=== PATIENT | female | born 1945 | race Caucasian/White ===

== ENCOUNTER 2019-12-28 07:23 | Outpatient (CLI) | payer OTHER, SELFPAY ==
[2019-12-28 08:32] LABS: Basophils Absolute Auto 0.1 K/mm3 (0.0-0.1); Basophils Percent Auto 1.3 % (0.2-1.2); Eosinophils Absolute Auto 0.2 K/mm3 (0-0.3); Eosinophils Percent Auto 2.6 % (0-4.4); Hematocrit 39.3 % (37.0-47.0); Hemoglobin 13.4 g/dL (12.0-15.0); Immature Granulocyte Absolute 0.01 K/mm3 (0.00-0.031); Immature Granulocyte Percent A 0.2 % (0-0.5); Lymphocytes Absolute Auto 2.79 K/mm3 (0.9-3.2); Mean Corpuscular HGB Conc 34.1 g/dl (32-36); Mean Corpuscular Hemoglobin 31.6 pg (26-34); Mean Corpuscular Volume 92.7 fl (80-100); Mean Platelet Volume 9.8 fl (7.4-10.4); Monocytes Absolute Auto 0.7 K/mm3 (0.1-0.6); Monocytes Percent Auto 11.3 % (2.6-8.5); Neutrophils Absolute Auto 2.5 K/mm3 (1.3-6.7); Neutrophils Percent Auto 39.6 % (45.5-73.1); Platelet Count Result 326 k/mm3 (150-375); Red Blood Count 4.24 M/mm3 (4.2-5.4); Red Cell Distribution Width 12.2 % (11.5-14.5); White Blood Count 6.2 K/mm3 (4.5-10.0)
[2019-12-28 08:49] LABS: Potassium 3.7 mmol/L (3.4-5.0)
[2019-12-28 08:51] LABS: Anion Gap 10 mmol/L (8-16); Blood Urea Nitrogen 22 mg/dL (7-17); Calcium 9.7 mg/dL (8.4-10.2); Carbon Dioxide 28 mmol/L (22-30); Chloride 93 mmol/L (98-107); Estimated Glomerular Filt Rate 54; Glucose 104 mg/dL (65-105); Sodium 131 mmol/L (137-145)
== END 2019-12-28 07:24 | disposition home or self-care (01) ==
LOC: ANHLAB 07:25
PROVIDERS: PCP Family Medicine; Visit Provider Physician Assistant
DX: I10 Essential (primary) hypertension (principal)
CPT/HCPCS: 36415; 80048; 85025

== ENCOUNTER → 2019-12-28 09:59 | Outpatient (CLI) | payer OTHER, SELFPAY ==
--- NOTE | ~2019-12-28 | CT_ITS ---
EXAMINATION: CT chest wo con DATE: 12/28/2019 10:21 INDICATION: Dyspnea on exertion, pulmonary fibrosis TECHNIQUE: Computed tomography (CT) of the chest was performed without intravenous contrast. The dose -length product (DLP) was 485.44 mGy-cm. Automated exposure control and iterative reconstruction tech [employer] were employed. COMPARISON: 10/04/2012 FINDINGS: Calcified pulmonary nodules are consistent with old granulomatous disease. An unchanged 5 m m nodule of the left lower lobe also likely reflects old granulomatous disease. The lungs are free of acute opacities. There is no pleural effusion or pneumothorax. No pathologically enlarged thoracic l ymph nodes are identified. The heart size is normal. No pulmonary fibrosis is identified. There is mo derate thoracic spondylosis. IMPRESSION: 1. No CT correlate for the patient's symptoms or evidence of pulmonary fibrosis. Reviewed, dictated and finalized at location A. IMPRESSION: 1. No CT correlate for the patient's symptoms or evidence of pulmonary fibrosis .
== END ==
PROVIDERS: PCP Family Medicine; Visit Provider Physician Assistant
DX: J84.10 Pulmonary fibrosis, unspecified (principal); R06.02 Shortness of breath
CPT/HCPCS: 71250

== ENCOUNTER → 2020-01-14 13:57 | Outpatient (CLI) | payer OTHER, SELFPAY ==
--- NOTE | ~2020-01-14 | MM_ITS ---
EXAMINATION: MM screening rubi BI w maxwell HISTORY: Screening mammogram TECHNIQUE: Craniocaudal and mediolateral oblique 3-D tomosynthesis images were obtained and synthetic 2-D images were generated. CAD analysis was submitted and interpreted. COMPARISON: 10/19/2018, 10/03/2017, 01/16/2016 bilateral digital screening mammogram examinations BREAST PARENCHYMAL COMPOSITION: There are scattered areas of fibroglandular density. FINDINGS: There is no evidence of suspicious mass, calcification, or architectural distortion to sugg est malignancy in either breast. There has been no suspicious interval change. IMPRESSION: 1. No mammographic evidence of malignancy. 2. Recommend routine screening mammography in one year. BI-RADS Category 1: Negative Reviewed, dictated and finalized at location A.
== END ==
PROVIDERS: PCP Family Medicine; Visit Provider Family Medicine
DX: Z12.31 Encounter for screening mammogram for malignant neoplasm of breast (principal)
CPT/HCPCS: 77063; 77067

== ENCOUNTER 2020-01-19 06:49 | Outpatient (CLI) | payer OTHER, SELFPAY ==
[2020-01-19 07:36] LABS: Anion Gap 7 mmol/L (8-16); Blood Urea Nitrogen 22 mg/dL (7-17); Carbon Dioxide 30 mmol/L (22-30); Chloride 99 mmol/L (98-107); Estimated Glomerular Filt Rate 54; Glucose 108 mg/dL (65-105); Potassium 3.9 mmol/L (3.4-5.0); Sodium 136 mmol/L (137-145)
[2020-01-19 07:39] LABS: Sodium Urine Random 89 meq/L
== END 2020-01-19 06:50 | disposition home or self-care (01) ==
PROVIDERS: PCP Family Medicine; Visit Provider Physician Assistant
DX: E87.1 Hypo-osmolality and hyponatremia (principal)
CPT/HCPCS: 36415; 80048; 84300

== ENCOUNTER 2020-08-23 06:58 | Outpatient (CLI) | payer OTHER, SELFPAY ==
[2020-08-23 07:29] LABS: Basophils Absolute Auto 0.1 K/mm3 (0.0-0.1); Basophils Percent Auto 1.2 % (0.2-1.2); Eosinophils Absolute Auto 0.2 K/mm3 (0-0.3); Eosinophils Percent Auto 4.2 % (0-4.4); Hematocrit 37.6 % (37.0-47.0); Hemoglobin 12.8 g/dL (12.0-15.0); Immature Granulocyte Absolute 0.01 K/mm3 (0.00-0.031); Immature Granulocyte Percent A 0.2 % (0-0.5); Lymphocytes Absolute Auto 2.05 K/mm3 (0.9-3.2); Lymphocytes Percent Auto 40.8 % (18.3-44.2); Mean Corpuscular Hemoglobin 31.4 pg (26-34); Mean Corpuscular Volume 92.4 fl (80-100); Mean Platelet Volume 9.4 fl (7.4-10.4); Monocytes Absolute Auto 0.6 K/mm3 (0.1-0.6); Monocytes Percent Auto 11.5 % (2.6-8.5); Neutrophils Absolute Auto 2.1 K/mm3 (1.3-6.7); Neutrophils Percent Auto 42.1 % (45.5-73.1); Platelet Count Result 281 k/mm3 (150-375); Red Blood Count 4.07 M/mm3 (4.2-5.4); Red Cell Distribution Width 11.9 % (11.5-14.5)
[2020-08-23 07:47] LABS: Alanine Aminotransferase 17 U/L (4-35); Albumin Level 4.3 g/dL (3.5-5.1); Alkaline Phosphatase 77 U/L (38-126); Anion Gap 7 mmol/L (8-16); Aspartate Amino Transferase 37 U/L (14-36); Bilirubin,Total 0.5 mg/dL (0.2-1.3); Blood Urea Nitrogen 19 mg/dL (7-17); Calcium 9.8 mg/dL (8.4-10.2); Carbon Dioxide 31 mmol/L (22-30); Chloride 97 mmol/L (98-107); Cholesterol 175 mg/dL (0-200); Estimated Glomerular Filt Rate > 60; Glucose 98 mg/dL (65-105); HDL Direct 72 mg/dL; Potassium 3.9 mmol/L (3.4-5.0); Sodium 135 mmol/L (137-145); Triglycerides 88 mg/dL (<150)
[2020-08-23 07:58] LABS: LDL Cholesterol Direct 75 mg/dL
[2020-08-27 14:41] LABS: Vitamin D 1,25 (OH)2 Total 38 pg/mL (18-72); Vitamin D2 1,25 (OH)2 <8 pg/mL; Vitamin D3 1,25 (OH)2 38 pg/mL
== END 2020-08-23 06:59 | disposition home or self-care (01) ==
PROVIDERS: PCP Family Medicine; Visit Provider Physician Assistant
DX: E55.9 Vitamin D deficiency, unspecified (principal); E78.2 Mixed hyperlipidemia; I10 Essential (primary) hypertension
CPT/HCPCS: 36415; 80053; 80061; 82652; 85025

== ENCOUNTER 2020-12-10 15:50 | Outpatient (CLI) | payer OTHER, SELFPAY ==
--- NOTE | ~2020-12-10 | CT_ITS ---
EXAMINATION: CT abdomen pelvis wo con DATE: 12/10/2020 16:43 INDICATION: Abdominal pain. TECHNIQUE: Computed tomography (CT) of the abdomen and pelvis was performed without intravenous contr ast. Automated exposure control and iterative reconstruction technique were employed. The dose-length product was 1125.71 mGy-cm. COMPARISON: CT abdomen and pelvis 06/21/2011 FINDINGS: A calcified right lung nodule and calcified right hilar lymph nodes are consistent with old granulomatous disease. There is mild atelectasis bilaterally. There are nodules in left lower lobe m easuring up to 4 mm, likely benign. No pleural effusion. The heart size is normal. There are coronary artery calcifications. There are calcifications of the aortic valve. No pericardial effusion. There is a small sliding hiatal hernia. The liver, gallbladder, spleen, pancreas, adrenal glands, and left kidney are normal. There are cysts in right kidney measuring up to 4.6 cm. There is no urolithiasis. There are scattered diverticula in the colon. There is mild fat stranding adjacent to a sigmoid diver ticulum, consistent with diverticulitis. There are no dilated loops of bowel. The appendix is not vis ualized. There are no pathologically enlarged lymph nodes. There is no free intraperitoneal fluid. Th ere is severe thoracic and lumbar spondylosis. IMPRESSION: 1. Mild sigmoid diverticulitis. No perforation or abscess. Reviewed, dictated and finalized at location B.
[2020-12-10 16:51] LABS: Basophils Absolute Auto 0.1 K/mm3 (0.0-0.1); Basophils Percent Auto 0.6 % (0.2-1.2); Eosinophils Absolute Auto 0.1 K/mm3 (0-0.3); Eosinophils Percent Auto 1.2 % (0-4.4); Hematocrit 36.8 % (37.0-47.0); Hemoglobin 12.2 g/dL (12.0-15.0); Immature Granulocyte Absolute 0.03 K/mm3 (0.00-0.031); Immature Granulocyte Percent A 0.3 % (0-0.5); Lymphocytes Absolute Auto 2.45 K/mm3 (0.9-3.2); Lymphocytes Percent Auto 27.7 % (18.3-44.2); Mean Corpuscular HGB Conc 33.2 g/dl (32-36); Mean Corpuscular Hemoglobin 30.3 pg (26-34); Mean Corpuscular Volume 91.5 fl (80-100); Mean Platelet Volume 9.4 fl (7.4-10.4); Monocytes Absolute Auto 0.9 K/mm3 (0.1-0.6); Monocytes Percent Auto 9.8 % (2.6-8.5); Neutrophils Absolute Auto 5.3 K/mm3 (1.3-6.7); Neutrophils Percent Auto 60.4 % (45.5-73.1); Platelet Count Result 320 k/mm3 (150-375); Red Blood Count 4.02 M/mm3 (4.2-5.4); Red Cell Distribution Width 11.9 % (11.5-14.5); White Blood Count 8.8 K/mm3 (4.5-10.0)
[2020-12-10 18:07] LABS: Erythrocyte Sedimentation Rate 47 mm/hr (0-20)
== END 2020-12-10 15:51 | disposition home or self-care (01) ==
PROVIDERS: PCP Family Medicine; Visit Provider Physician Assistant
DX: R10.9 Unspecified abdominal pain (principal); R10.814 Left lower quadrant abdominal tenderness; K59.00 Constipation, unspecified; K57.92 Diverticulitis of intestine, part unspecified, without perforation or abscess without bleeding
CPT/HCPCS: 36415; 74176; 85025; 85652

== ENCOUNTER 2020-12-22 12:10 | Outpatient (CLI) | payer OTHER, SELFPAY ==
--- NOTE | ~2020-12-22 | XR_ITS ---
EXAMINATION: XR chest 2V DATE: 12/22/2020 12:30 INDICATION: Cough. TECHNIQUE: Frontal and lateral views of the chest were obtained. COMPARISON: Chest 2 views 12/24/2005, CT abdomen and pelvis 12/10/2020 FINDINGS: There is mild scarring at the lung apices. Calcified bilateral lung nodules and calcified r ight hilar lymph nodes are consistent with old granulomatous disease. No pleural effusion or pneumoth orax. The heart size is normal. IMPRESSION: 1. Stable mild scarring at the lung apices. Reviewed, dictated and finalized at location A.
== END 2020-12-22 12:11 | disposition home or self-care (01) ==
PROVIDERS: PCP Family Medicine; Visit Provider Family Medicine
DX: R05 Cough (principal); R91.8 Other nonspecific abnormal finding of lung field
CPT/HCPCS: 71046

== ENCOUNTER → 2020-12-23 01:57 | Outpatient (CLI) | payer OTHER, SELFPAY ==
[2020-12-23 19:54] LABS: SARS-CoV-2 RNA PCR Negative
== END ==
PROVIDERS: PCP Family Medicine; Visit Provider Physician Assistant
DX: R68.89 Other general symptoms and signs (principal); Z20.822 Contact with and (suspected) exposure to COVID-19
CPT/HCPCS: C9803; U0003; U0005

== ENCOUNTER 2021-01-15 08:46 | Outpatient (CLI) | payer OTHER, SELFPAY ==
--- NOTE | ~2021-01-15 | MM_ITS ---
EXAMINATION: MM screening rubi BI w maxwell HISTORY: Screening mammogram TECHNIQUE: Craniocaudal and mediolateral oblique 3-D tomosynthesis images were obtained and synthetic 2-D images were generated. CAD analysis was submitted and interpreted. COMPARISON: 01/14/2020, 10/19/2018, 10/03/2017 bilateral digital screening mammogram examinations BREAST PARENCHYMAL COMPOSITION: There are scattered areas of fibroglandular density. FINDINGS: There is no evidence of suspicious mass, calcification, or architectural distortion to sugg est malignancy in either breast. There has been no suspicious interval change. IMPRESSION: 1. No mammographic evidence of malignancy. 2. Recommend routine screening mammography in one year. BI-RADS Category 1: Negative Reviewed, dictated and finalized at location A.
--- NOTE | ~2021-01-15 | DEXA_ITS ---
Bone Density Report Name: Kirsty Vivar Age: 75 Sex: Female Ethnicity: White Date of : 1945 Indication: postmenopausal; height loss; hysterectomy; Referring Provider: Mary Kate Sanchez Study: Bone densitometry was performed. Exam Date: January 15, 2021 Accession number: [id number] Bone Density: Region BMD T-score Z-score Classification AP Spine (L1, L2, L3) 1.009 -0.1 2.3 Normal Femoral Neck (Left) 0.633 -1.9 0.1 Osteopenia Total Hip (Left) 0.860 -0.7 1.1 Normal Total Hip Bilateral Avg 0.837 -0.9 0.9 Normal Femoral Neck (Right) 0.640 -1.9 0.2 Osteopenia Total Hip (Right) 0.813 -1.1 0.7 Osteopenia World Health Organization criteria for BMD impression classify patients as: Normal (T-score at or above -1.0), Osteopenia (T-score between -1.0 and -2.5), or Osteoporosis (T-score at or below -2.5). 10-year Fracture Risk: FRAX not reported because: Treated for osteoporosis Clinical Information Provided by Patient: Is being treated for osteoporosis Has used the following medications: Fosamax (i.e. alendronate), Vitamin D Has the following medical conditions: Hysterectomy Patient maximum height was 64 Menopause Age: 33 No regular weight bearing exercise Drinks caffeinated beverages Onset of menses at age 14 Number of children 2 Impression: The patient has low bone mass, based on the Left Femoral Neck T-score. Discussion: It is important to ask patients whether they are taking their medications and to encourage continued and appropriate compliance with their osteoporosis therapies to reduce fracture risk. It is also important to review their risk factors and encourage appropriate calcium and vitamin D intakes, exercise, fall prevention and other lifestyle measures. Follow-Up: Consider a repeat BMD and Vertebral Fracture Assessment (VFA) exam in 2 years or sooner if medically necessary, to reassess this patient's status. Reported by: JAX on 01/15/2021 9:17:00 AM. Reviewed, dictated and finalized at location ATerese BRIONES
== END 2021-01-15 08:47 | disposition home or self-care (01) ==
LOC: ANHIMG 08:48
PROVIDERS: PCP Family Medicine; Visit Provider Physician Assistant
DX: Z12.31 Encounter for screening mammogram for malignant neoplasm of breast (principal); Z78.0 Asymptomatic menopausal state; M85.89 Other specified disorders of bone density and structure, multiple sites
CPT/HCPCS: 77063; 77067; 77080

== ENCOUNTER 2021-09-18 06:57 | Outpatient (CLI) | payer OTHER, SELFPAY ==
--- NOTE | ~2021-09-18 | XR_ITS ---
EXAMINATION: XR chest 2V DATE: 09/18/2021 07:43 INDICATION: Cough. TECHNIQUE: Frontal and lateral views of the chest were obtained. COMPARISON: Chest 2 views 12/22/20, CT abdomen and pelvis 12/10/2020 FINDINGS: There is mild scarring at the lung apices. No pleural effusion or pneumothorax. There is ch ronic blunting of left posterior costophrenic angle correlating with a small diaphragmatic hernia con taining fat by CT. The heart size is normal. IMPRESSION: 1. Stable mild scarring at the lung apices. Reviewed, dictated and finalized at location A.
[2021-09-18 08:11] LABS: Basophils Absolute Auto 0.1 K/mm3 (0.0-0.1); Basophils Percent Auto 0.7 % (0.2-1.2); Eosinophils Absolute Auto 0.2 K/mm3 (0-0.3); Eosinophils Percent Auto 2.9 % (0-4.4); Hematocrit 36.7 % (37.0-47.0); Hemoglobin 11.9 g/dL (12.0-15.0); Immature Granulocyte Absolute 0.03 K/mm3 (0.00-0.031); Immature Granulocyte Percent A 0.4 % (0-0.5); Lymphocytes Absolute Auto 2.16 K/mm3 (0.9-3.2); Lymphocytes Percent Auto 31.3 % (18.3-44.2); Mean Corpuscular HGB Conc 32.4 g/dl (32-36); Mean Corpuscular Hemoglobin 30.9 pg (26-34); Mean Corpuscular Volume 95.3 fl (80-100); Mean Platelet Volume 9.5 fl (7.4-10.4); Monocytes Absolute Auto 0.7 K/mm3 (0.1-0.6); Monocytes Percent Auto 9.6 % (2.6-8.5); Neutrophils Absolute Auto 3.8 K/mm3 (1.3-6.7); Neutrophils Percent Auto 55.1 % (45.5-73.1); Platelet Count Result 284 k/mm3 (150-375); Red Blood Count 3.85 M/mm3 (4.2-5.4); Red Cell Distribution Width 12.5 % (11.5-14.5); White Blood Count 6.9 K/mm3 (4.5-10.0)
[2021-09-18 08:20] LABS: Alanine Aminotransferase 20 U/L (6-35); Albumin Level 4.1 g/dL (3.5-5.1); Alkaline Phosphatase 98 U/L (38-126); Anion Gap 8 mmol/L (8-16); Aspartate Amino Transferase 32 U/L (14-36); Bilirubin,Total 0.5 mg/dL (0.2-1.3); Blood Urea Nitrogen 17 mg/dL (7-17); Calcium 9.2 mg/dL (8.4-10.2); Carbon Dioxide 25 mmol/L (22-30); Chloride 99 mmol/L (98-107); Cholesterol 186 mg/dL (0-200); Estimated Glomerular Filt Rate > 60; Glucose 91 mg/dL (65-110); HDL Direct 75 mg/dL; Potassium 4.1 mmol/L (3.4-5.0); Sodium 132 mmol/L (137-145); Triglycerides 63 mg/dL (<150)
[2021-09-18 08:31] LABS: LDL Cholesterol Direct 60 mg/dL
[2021-09-22 14:34] LABS: Vitamin D 1,25 (OH)2 Total 42 pg/mL (18-72); Vitamin D2 1,25 (OH)2 <8 pg/mL; Vitamin D3 1,25 (OH)2 42 pg/mL
== END 2021-09-18 06:58 | disposition home or self-care (01) ==
PROVIDERS: PCP Family Medicine; Visit Provider Nurse Practitioner Gerontology
DX: E55.9 Vitamin D deficiency, unspecified (principal); F41.1 Generalized anxiety disorder; E78.2 Mixed hyperlipidemia; R05.9 Cough, unspecified
CPT/HCPCS: 36415; 71046; 80053; 80061; 82652; 84443; 85025

== ENCOUNTER 2021-10-07 07:14 | Outpatient (CLI) | payer OTHER, SELFPAY ==
[2021-10-07 08:14] LABS: Alanine Aminotransferase 17 U/L (6-35); Albumin Level 4.5 g/dL (3.5-5.1); Alkaline Phosphatase 83 U/L (38-126); Anion Gap 6 mmol/L (8-16); Aspartate Amino Transferase 31 U/L (14-36); Bilirubin,Total 0.4 mg/dL (0.2-1.3); Blood Urea Nitrogen 25 mg/dL (7-17); Carbon Dioxide 29 mmol/L (22-30); Chloride 102 mmol/L (98-107); Estimated Glomerular Filt Rate > 60; Glucose 99 mg/dL (65-110); Potassium 3.6 mmol/L (3.4-5.0); Sodium 137 mmol/L (137-145)
== END 2021-10-07 07:15 | disposition home or self-care (01) ==
LOC: ANHLAB 07:15
PROVIDERS: PCP Family Medicine; Visit Provider Nurse Practitioner Gerontology
DX: E87.1 Hypo-osmolality and hyponatremia (principal)
CPT/HCPCS: 36415; 80053

== ENCOUNTER 2021-10-21 08:16 | Outpatient (CLI) | payer OTHER, SELFPAY ==
--- NOTE | 2021-10-21 12:38 | WPDPFTINT ---
PFT Procedure Performed PFT Procedure Performed Plethysmography (Lung Vol) Diffusing Cap (DLCO) Flow Vol Loop Spirometry w/o Bronchodil PFT Interpretation This is a pulmonary function test with spirometry, plethysmography and diffusing capacity. The test was performed and results interpreted in accordance with the 2019 and 2005 ATS/ERS Task Force guidelines respectively using the Global Lung Function Initiative-2012 reference equations. Patient demonstrated good effort and cooperation. Reproducibility criteria were met. The quality of the spirometry maneuver was Grade A. Findings: Spirometry: The contour the inspiratory and expiratory flow tracing are normal. The FVC is 2.74 L, 101% predicted. The FEV1 is 2.19 L, 105% predicted. The FEV1: FVC ratio was 80%. Plethysmography: The total lung capacity is 4.93 L, 97% predicted. The functional residual capacity is 2.15 L, 73% predicted. The residual volume is 2.08 L, 91% predicted. Diffusing capacity: The diffusing capacity on adjusted for hemoglobin and carboxyhemoglobin is 14.7, 74% predicted. The diffusing capacity adjusted for alveolar volume is 3.89, 92% predicted. Impression: The spirometry is normal without evidence of an obstructive abnormality. The lung volumes are normal. The diffusing capacity is normal. There are no prior studies for comparison
== END 2021-10-21 08:17 | disposition home or self-care (01) ==
LOC: ANHPFT 08:20
PROVIDERS: PCP Family Medicine; Visit Provider Nurse Practitioner Gerontology
DX: R06.02 Shortness of breath (principal)
CPT/HCPCS: 94375; 94726; 94729

== ENCOUNTER → 2021-12-11 11:19 | Outpatient (CLI) | payer OTHER, SELFPAY ==
--- NOTE | ~2021-12-11 | CT_ITS ---
EXAMINATION: CT chest high resolution wo sc DATE: 12/11/2021 11:48 INDICATION: Chronic cough, shortness of breath and lung nodule TECHNIQUE: Computed tomography (CT) of the chest was performed without intravenous contrast. The dose -length product was 442.15 mGy-cm. Automated exposure control and iterative reconstruction technique were employed. COMPARISON: CT dated 12/28/2019 FINDINGS: No thoracic lymphadenopathy. Heart size normal. No significant pleural or pericardial effus ion. There is evidence for chronic granulomatous disease. There is atherosclerosis of the aorta and c oronary arteries. No significant pleural or pericardial effusion. Stable 4-5 mm left lower lobe nodul e. Calcified granuloma left lower lobe. There are additional scattered calcified nodules, consistent with chronic granulomatous disease. There are a few small 2 mm subpleural nodules in the left upper l obe. No endobronchial lesions. No focal airspace consolidation. No pneumothorax. There is moderate th oracic spondylosis. There is dextroscoliosis. IMPRESSION: 1. Stable 4-5 mm left lower lobe nodule, likely benign. Consider follow-up low dose CT chest in 12 mo nths. Reviewed, dictated and finalized at location B. IMPRESSION: 1. Stable 4-5 mm left lower lobe nodule, likely benign. Consider follow-up low dose CT chest in 12 months.
== END ==
PROVIDERS: PCP Family Medicine; Visit Provider Nurse Practitioner Gerontology
DX: R05.3 Chronic cough (principal); R06.02 Shortness of breath; R91.1 Solitary pulmonary nodule
CPT/HCPCS: 71250

== ENCOUNTER → 2022-05-06 13:43 | Outpatient (CLI) | payer OTHER, SELFPAY ==
--- NOTE | ~2022-05-06 | MM_ITS ---
EXAMINATION: MM screening rubi BI w maxwell HISTORY: Screening TECHNIQUE: Craniocaudal and mediolateral oblique 3-D tomosynthesis images were obtained and synthetic 2-D images were generated. CAD analysis was submitted and interpreted. COMPARISON: Comparison to multiple prior studies sequentially, with oldest reviewed study dated 01/15. BREAST PARENCHYMAL COMPOSITION: There are scattered areas of fibroglandular density. FINDINGS: There is no evidence of suspicious mass, calcification, or architectural distortion to sugg est malignancy in either breast. There has been no suspicious interval change. IMPRESSION: 1. No mammographic evidence of malignancy. 2. Recommend routine screening mammography in one year. BI-RADS Category 1: Negative Reviewed, dictated and finalized at location A. 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
== END ==
PROVIDERS: PCP Family Medicine; Visit Provider Nurse Practitioner Gerontology
DX: Z12.31 Encounter for screening mammogram for malignant neoplasm of breast (principal)
CPT/HCPCS: 77063; 77067

== ENCOUNTER 2022-10-12 06:36 | Outpatient (CLI) | payer OTHER, SELFPAY ==
[2022-10-12 07:43] LABS: Basophils Absolute Auto 0.1 K/mm3 (0.0-0.1); Basophils Percent Auto 1.3 % (0.2-1.2); Eosinophils Absolute Auto 0.2 K/mm3 (0-0.3); Eosinophils Percent Auto 3.7 % (0-4.4); Hematocrit 39.1 % (37.0-47.0); Hemoglobin 13.3 g/dL (12.0-15.0); Immature Granulocyte Absolute 0.02 K/mm3 (0.00-0.031); Immature Granulocyte Percent A 0.3 % (0-0.5); Lymphocytes Absolute Auto 2.76 K/mm3 (0.9-3.2); Lymphocytes Percent Auto 43.9 % (18.3-44.2); Mean Corpuscular Hemoglobin 30.9 pg (26-34); Mean Corpuscular Volume 90.9 fl (80-100); Mean Platelet Volume 9.4 fl (7.4-10.4); Monocytes Absolute Auto 0.6 K/mm3 (0.1-0.6); Monocytes Percent Auto 9.5 % (2.6-8.5); Neutrophils Absolute Auto 2.6 K/mm3 (1.3-6.7); Neutrophils Percent Auto 41.3 % (45.5-73.1); Platelet Count Result 320 k/mm3 (150-375); White Blood Count 6.3 K/mm3 (4.5-10.0)
[2022-10-12 07:51] LABS: Hemoglobin A1C 5.1 % (<5.7)
[2022-10-12 07:53] LABS: Alanine Aminotransferase 22 U/L (6-35); Albumin Level 4.5 g/dL (3.5-5.1); Alkaline Phosphatase 90 U/L (38-126); Anion Gap 8 mmol/L (8-16); Aspartate Amino Transferase 35 U/L (14-36); Bilirubin,Total 0.5 mg/dL (0.2-1.3); Blood Urea Nitrogen 13 mg/dL (7-17); Calcium 9.3 mg/dL (8.4-10.2); Carbon Dioxide 27 mmol/L (22-30); Chloride 95 mmol/L (98-107); Cholesterol 213 mg/dL (0-200); Estimated Glomerular Filt Rate > 60; Glucose 88 mg/dL (65-110); HDL Direct 83 mg/dL; Potassium 3.8 mmol/L (3.4-5.0); Sodium 130 mmol/L (137-145); Triglycerides 126 mg/dL (<150)
[2022-10-12 08:38] LABS: LDL Cholesterol Direct 89 mg/dL
[2022-10-16 17:14] LABS: Vitamin D 1,25 (OH)2 Total 42 pg/mL (18-72); Vitamin D2 1,25 (OH)2 <8 pg/mL; Vitamin D3 1,25 (OH)2 42 pg/mL
== END 2022-10-12 06:37 | disposition home or self-care (01) ==
PROVIDERS: PCP Family Medicine; Visit Provider Nurse Practitioner Gerontology
DX: R73.9 Hyperglycemia, unspecified (principal); E55.9 Vitamin D deficiency, unspecified; I25.10 Atherosclerotic heart disease of native coronary artery without angina pectoris; E87.1 Hypo-osmolality and hyponatremia; I10 Essential (primary) hypertension; E78.2 Mixed hyperlipidemia; R53.83 Other fatigue
CPT/HCPCS: 36415; 80053; 80061; 82607; 82652; 83036; 85025

== ENCOUNTER 2022-12-08 12:26 | Outpatient (CLI) | payer OTHER, SELFPAY ==
--- NOTE | 2022-12-08 | ECHO_ITS ---
Patient Info Name: Kirsty Vivar Age: 77 years : 1945 Gender: Female Ht: 64 in Wt: 194 lbs BSA: 2.03 m2 HR: 78 bpm BP: 111 / 70 mmHg Technical Quality: Fair Exam Date: 12/08/2022 1:36 PM Exam Location: [facility] Patient Status: Outpatient Admit Date: 12/08/2022 Staff Ordering Physician: Je Mendez MD Shaving Machine Operator: Aliya Montilla RDCS Attending Provider: Je Mendez MD Referring Physician: Andrea CORREA; Exam Type: CA echo doppler color flow Study Info Indications R06.02 - Shortness of breath Complete two-dimensional, color flow and Doppler transthoracic echocardiogram is performed. Summary 1. Complete two-dimensional, color flow and Doppler transthoracic echocardiogram is performed. 2. Left ventricular chamber dimension is normal. 3. Left ventricular systolic function is normal, estimated at 60-65%. 4. The left ventricular diastolic function is grade I diastolic dysfunction. 5. E/e' 9 is minimally elevated. 6. Left atrial chamber dimension is mildly enlarged. 7. There is mild aortic valve sclerosis. 8. There is trace aortic valve regurgitation. 9. No pulmonary hypertension, estimated pulmonary arterial systolic pressure is 30 mmHg. Left Ventricle E/e' 9 is minimally elevated. Left ventricular chamber dimension is normal. Left ventricular systolic function is normal, estimated at 60-65%. The left ventricular diastolic function is grade I diastolic dysfunction. Right Ventricle Right ventricular systolic function is normal and with normal TAPSE 2.4 cm. Right ventricular chamber dimension is normal. Left Atria Left atrial chamber dimension is mildly enlarged. Right Atria Right atrial chamber dimension is normal. Aortic Valve The aortic valve is trileaflet. There is mild aortic valve sclerosis. There is no aortic valve stenosis. There is trace aortic valve regurgitation. Pulmonic Valve There is no pulmonic regurgitation. Mitral Valve There is no mitral valve stenosis. There is no mitral valve regurgitation. Tricuspid Valve There is no tricuspid valve regurgitation. No pulmonary hypertension, estimated pulmonary arterial systolic pressure is 30 mmHg. Pericardium/Pleural There is no pericardial effusion. Inferior Vena Cava Normal inferior vena cava with >50% collapse upon inspiration consistent with normal right atrial pressure, 5 mmHg. Aorta The aortic root size at the sinus of Valsalva is normal. Left Ventricular Outflow Tract Name Value Normal LVOT 2D LVOT Diameter 2.0 cm LVOT Doppler LVOT Peak Gradient 4 mmHg LVOT Mean Gradient 3 mmHg LVOT VTI 24 cm LVOT VTI/AV VTI Ratio 0.7 LVOT Stroke Volume 74 ml LVOT CO 14.8 l/min LVOT CI 7.3 l/min/m2 Pulmonic Valve Name Value Normal PV Doppler
--- NOTE | 2022-12-08 17:11 | WPDPFTINT ---
PFT Procedure Performed PFT Procedure Performed Spirometry with Pre/Post Bronchodilator Plethysmography (Lung Vol) Diffusing Cap (DLCO) Flow Vol Loop PFT Interpretation This is a pulmonary function test with pre and post-bronchodilator spirometry, plethysmography and diffusing capacity. The test was performed and results interpreted in accordance with the 2019 and 2005 ATS/ERS Task Force guidelines respectively using the Global Lung Function Initiative-2012 reference equations. Patient demonstrated good effort and cooperation. Reproducibility criteria were met. The quality of the pre bronchodilator spirometry maneuver was Grade A and post bronchodilator spirometry maneuver was Grade A. Findings: Spirometry: The contour the inspiratory and expiratory flow tracing are normal. The pre bronchodilator FVC is 2.75 L, 103% predicted. The pre bronchodilator FEV1 is 2.22 L, 108% predicted. The pre bronchodilator FEV1: FVC ratio is 81%. The post bronchodilator FVC is 2.90 L, representing a 6% increase. The post bronchodilator FEV1 is 2.36 L, representing a 6% increase. The post bronchodilator FEV1: FVC ratio was 81%. Plethysmography: The total lung capacity is 4.89 L, 96% predicted. The functional residual capacity is 1.85 L, 63% predicted. The residual volume is 1.83 L, 79% predicted. Diffusing capacity: The diffusing capacity unadjusted for hemoglobin and carboxyhemoglobin is 16.3, 82% predicted. Diffusing capacity adjusted for alveolar volume is 3.93, 94% predicted. In comparison to previous pulmonary function testing performed on 10/21/2021 in which only pre bronchodilator spirometry was performed the pre bronchodilator FVC is unchanged from 2.74 L to 2.75 L. The pre bronchodilator FEV1 is unchanged from 2.19 L to 2.22 L. The total lung capacity is unchanged from 4.93 L to 4.89 L. The functional residual capacity is unchanged from 2.15 L to 1.85 L. The residual volume is unchanged from 2.08 L to 1.83 L. The diffusing capacity unadjusted for hemoglobin and carboxyhemoglobin is unchanged from 14.7 to 16.3 the diffusing capacity adjusted for alveolar volume is unchanged from 3.89 to 3.93. Impression: The spirometry is normal without evidence of an obstructive abnormality. There is no significant improvement after inhaling a single dose of albuterol. The total lung capacity and residual volume are normal with a decreased functional residual capacity. This is an abnormal but nonspecific lung volume pattern. The diffusing capacity is normal. In comparison to previous pulmonary function testing on 10/21/2021 there has been no significant change in the FVC, FEV1, total lung capacity, functional residual capacity, residual volume or diffusing capacity. Clinical correlation is recommended.
== END 2022-12-08 12:27 | disposition home or self-care (01) ==
PROVIDERS: PCP Family Medicine; Visit Provider Internal Medicine Pulmonary Disease
DX: R06.00 Dyspnea, unspecified (principal); R93.1 Abnormal findings on diagnostic imaging of heart and coronary circulation; I51.7 Cardiomegaly; I50.30 Unspecified diastolic (congestive) heart failure; I35.8 Other nonrheumatic aortic valve disorders; I35.1 Nonrheumatic aortic (valve) insufficiency
CPT/HCPCS: 93306; 94060; 94726; 94729

== ENCOUNTER → 2022-12-15 12:28 | Outpatient (CLI) | payer OTHER, SELFPAY ==
--- NOTE | ~2022-12-15 | CT_ITS ---
EXAMINATION: CT diagnostic chest wo con DATE: 12/15/2022 12:44 INDICATION: Pulmonary nodule TECHNIQUE: Computed tomography (CT) of the chest was performed without intravenous contrast. The dose -length product (DLP) was 131.39 mGy-cm. Automated exposure control and iterative reconstruction tech [employer] were employed. COMPARISON: 12/11/2021, 12/28/2019 FINDINGS: There is a stable 4 mm nodule of the left lower lobe. Additional smaller subpleural nodules of the left lower lobe are also stable. No new pulmonary nodule is identified. There is mild depende nt atelectasis. The lungs are free of acute airspace opacities. No pleural effusion or pneumothorax. No pathologically enlarged thoracic lymph nodes are identified. The heart size is normal. Calcified p ulmonary nodules and calcified right hilar and subcarinal lymph nodes are consistent with old granulo matous disease. Calcified coronary artery atherosclerosis is noted. There is severe thoracic spondylo sis. IMPRESSION: 1. Stable lung nodules, consistent with old granulomatous disease. Reviewed, dictated and finalized at location A.
== END ==
PROVIDERS: PCP Family Medicine; Visit Provider Physician Assistant
DX: R91.1 Solitary pulmonary nodule (principal)
CPT/HCPCS: 71250

== ENCOUNTER 2023-08-03 11:10 | Outpatient (CLI) | payer OTHER, SELFPAY ==
[2023-08-03 12:03] LABS: Basophils Absolute Auto 0.1 K/mm3 (0.0-0.1); Basophils Percent Auto 1.2 % (0.2-1.2); Eosinophils Absolute Auto 0.2 K/mm3 (0-0.3); Eosinophils Percent Auto 3.3 % (0-4.4); Hematocrit 37.9 % (37.0-47.0); Hemoglobin 12.4 g/dL (12.0-15.0); Immature Granulocyte Absolute 0.01 K/mm3 (0.00-0.031); Immature Granulocyte Percent A 0.1 % (0-0.5); Lymphocytes Absolute Auto 1.99 K/mm3 (0.9-3.2); Lymphocytes Percent Auto 28.9 % (18.3-44.2); Mean Corpuscular HGB Conc 32.7 g/dl (32-36); Mean Corpuscular Volume 94.8 fl (80-100); Mean Platelet Volume 9.9 fl (7.4-10.4); Monocytes Absolute Auto 0.7 K/mm3 (0.1-0.6); Monocytes Percent Auto 9.9 % (2.6-8.5); Neutrophils Absolute Auto 3.9 K/mm3 (1.3-6.7); Neutrophils Percent Auto 56.6 % (45.5-73.1); Platelet Count Result 316 k/mm3 (150-375); White Blood Count 6.9 K/mm3 (4.5-10.0)
[2023-08-03 12:17] LABS: Alanine Aminotransferase 15 U/L (6-35); Albumin Level 4.8 g/dL (3.5-5.1); Alkaline Phosphatase 83 U/L (38-126); Anion Gap 11 mmol/L (4-12); Aspartate Amino Transferase 28 U/L (14-36); Bilirubin,Total 0.8 mg/dL (0.2-1.3); Blood Urea Nitrogen 17 mg/dL (7-17); Calcium 9.9 mg/dL (8.4-10.2); Carbon Dioxide 27 mmol/L (22-30); Chloride 100 mmol/L (98-107); Cholesterol 194 mg/dL (0-200); Estimated Glomerular Filt Rate > 60; Glucose 106 mg/dL (65-110); HDL Direct 70 mg/dL; Potassium 3.1 mmol/L (3.4-5.0); Sodium 138 mmol/L (137-145); Triglycerides 132 mg/dL (<150)
[2023-08-03 12:27] LABS: LDL Cholesterol Direct 94 mg/dL
[2023-08-03 12:55] LABS: Free T4 Free Thyroxine 1.63 ng/mL (0.78-2.19)
== END 2023-08-03 11:11 | disposition home or self-care (01) ==
LOC: ANHLAB 11:11
PROVIDERS: PCP Family Medicine; Visit Provider Physician Assistant
DX: R53.83 Other fatigue (principal); I10 Essential (primary) hypertension; E87.1 Hypo-osmolality and hyponatremia; E07.9 Disorder of thyroid, unspecified; E78.2 Mixed hyperlipidemia
CPT/HCPCS: 36415; 80053; 80061; 84439; 84443; 84481; 85025

== ENCOUNTER 2023-08-16 09:53 | Outpatient (CLI) | payer OTHER, SELFPAY ==
--- NOTE | ~2023-08-16 | CT_ITS ---
EXAMINATION: CT brain wo con DATE: 08/16/2023 10:12 INDICATION: Dizziness and giddiness TECHNIQUE: Computed tomography (CT) of the head was performed without intravenous contrast. Sagittal and coronal reconstructions were performed. The mA was adjusted according to patient size. Iterative reconstruction technique was employed. The dose-length product was 605.33 mGy-cm. COMPARISON: None FINDINGS: No acute intracranial hemorrhage, acute infarction or abnormal extra axial fluid collection. Small ol d lacunar infarct versus more likely prominent perivascular space at the inferior aspect of the right basal ganglia. There is moderate scattered white matter hypoattenuation consistent with chronic smal l vessel ischemic disease. Symmetric prominence of the sulci consistent with mild age-appropriate dif fuse cerebral volume loss. Ventricles are normal and symmetric. No mass/mass effect. Changes of bilat eral intraocular lens replacement. There is dependently layering fluid in the bilateral maxillary and right sphenoid sinuses and within a few air cells of the bilateral ethmoid sinuses. There also is th ickened sclerotic milton to the bilateral maxillary and sphenoid sinuses. Findings consistent with acu te on chronic sinusitis. IMPRESSION: 1. Old lacunar infarct versus prominent perivascular space at the inferior right basal ganglia. No ac mary intracranial process. 2. Age-related changes including mild diffuse volume loss and moderate scattered white matter hypoatt enuation consistent with chronic small vessel ischemic disease. 3. Acute on chronic sinusitis. Reviewed, dictated and finalized at location A. IMPRESSION: 1. Old lacunar infarct versus prominent perivascular space at the inferior righ t basal ganglia. No acute intracranial process. 2. Age-related changes including mild diffuse volume loss and moderate scattere d white matter hypoattenuation consistent with chronic small vessel ischemic di sease. 3. Acute on chronic sinusitis.
== END 2023-08-16 09:54 | disposition home or self-care (01) ==
LOC: ANHIMG 09:55
PROVIDERS: PCP Family Medicine; Visit Provider Physician Assistant
DX: J32.9 Chronic sinusitis, unspecified (principal); R90.82 White matter disease, unspecified; Z86.73 Personal history of transient ischemic attack (TIA), and cerebral infarction without residual deficits
CPT/HCPCS: 70450

== ENCOUNTER 2023-09-21 13:39 | Outpatient (CLI) | payer OTHER, SELFPAY ==
[2023-09-21 15:12] LABS: Anion Gap 14 mmol/L (4-12); Blood Urea Nitrogen 19 mg/dL (7-17); Calcium 10.5 mg/dL (8.4-10.2); Carbon Dioxide 24 mmol/L (22-30); Chloride 98 mmol/L (98-107); Estimated Glomerular Filt Rate 24; Glucose 98 mg/dL (65-110); Potassium 3.3 mmol/L (3.4-5.0); Sodium 136 mmol/L (137-145)
== END 2023-09-21 13:40 | disposition home or self-care (01) ==
PROVIDERS: PCP Family Medicine; Visit Provider Physician Assistant
DX: E87.6 Hypokalemia (principal)
CPT/HCPCS: 36415; 80048

== ENCOUNTER 2023-10-20 11:32 | Outpatient (CLI) | payer OTHER, SELFPAY ==
[2023-10-20 12:07] LABS: Anion Gap 9 mmol/L (4-12); Blood Urea Nitrogen 12 mg/dL (7-17); Calcium 9.7 mg/dL (8.4-10.2); Carbon Dioxide 25 mmol/L (22-30); Chloride 103 mmol/L (98-107); Estimated Glomerular Filt Rate 54; Glucose 99 mg/dL (65-110); Sodium 137 mmol/L (137-145)
== END 2023-10-20 11:33 | disposition home or self-care (01) ==
PROVIDERS: PCP Family Medicine; Visit Provider Physician Assistant
DX: N17.9 Acute kidney failure, unspecified (principal)
CPT/HCPCS: 36415; 80048

== ENCOUNTER 2023-12-08 12:17 | Outpatient (CLI) | payer OTHER, SELFPAY ==
[2023-12-08 12:55] LABS: Anion Gap 11 mmol/L (4-12); Blood Urea Nitrogen 10 mg/dL (7-17); Calcium 9.4 mg/dL (8.4-10.2); Carbon Dioxide 25 mmol/L (22-30); Chloride 101 mmol/L (98-107); Estimated Glomerular Filt Rate > 60; Glucose 91 mg/dL (65-110); Sodium 137 mmol/L (137-145)
== END 2023-12-08 12:18 | disposition home or self-care (01) ==
LOC: ANHLAB 12:21
PROVIDERS: PCP Family Medicine; Visit Provider Family Medicine
DX: E87.6 Hypokalemia (principal); I10 Essential (primary) hypertension
CPT/HCPCS: 36415; 80048

== ENCOUNTER 2024-03-12 09:28 | Outpatient (CLI) | payer OTHER, SELFPAY ==
[2024-03-13 05:52] LABS: Cholesterol 208 mg/dL (0-200); HDL Direct 67 mg/dL; Triglycerides 149 mg/dL (<150)
[2024-03-13 06:02] LABS: LDL Cholesterol Direct 86 mg/dL
[2024-03-14 18:29] LABS: Red Blood Cell Folate 550 ng/mL RBC (>280)
[2024-03-16 18:58] LABS: Vitamin D 1,25 (OH)2 Total 33 pg/mL (18-72); Vitamin D2 1,25 (OH)2 <8 pg/mL; Vitamin D3 1,25 (OH)2 33 pg/mL
== END 2024-03-12 09:29 | disposition home or self-care (01) ==
LOC: ANHLAB 09:30
PROVIDERS: PCP Family Medicine; Visit Provider Psychiatry & Neurology Neurology
DX: I67.9 Cerebrovascular disease, unspecified (principal); E55.9 Vitamin D deficiency, unspecified; E78.2 Mixed hyperlipidemia; G25.0 Essential tremor
CPT/HCPCS: 36415; 80061; 82607; 82652; 82747; 83921

== ENCOUNTER 2024-03-27 12:38 | Outpatient (CLI) | payer OTHER, SELFPAY ==
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
== END 2024-03-27 12:39 | disposition home or self-care (01) ==
LOC: GOSHIMG 12:39
PROVIDERS: PCP Family Medicine; Visit Provider Psychiatry & Neurology Neurology
DX: G25.0 Essential tremor (principal); I67.9 Cerebrovascular disease, unspecified; Z87.828 Personal history of other (healed) physical injury and trauma
CPT/HCPCS: 70551

== ENCOUNTER 2024-04-02 13:47 | Outpatient (CLI) | payer OTHER, SELFPAY ==
--- NOTE | ~2024-04-02 | US_ITS ---
EXAMINATION: US carotid duplex BI DATE: 04/02/2024 14:24 INDICATION: Carotid atherosclerosis and stenosis TECHNIQUE: Grayscale, color Doppler, and pulsed Doppler images of the cervical carotid arteries were obtained. The degree of vessel stenosis is placed in one of the following categories: normal, <50%, 5 0-69%, >=70% but less than near-occlusion, near-occlusion, or total occlusion. Note that percent sten osis relative to normal distal artery lumen diameter is indirectly measured from velocity measurement s as described by Oscar, et al. Radiology 2003; [id number]:340-346. COMPARISON: 10/21/2014 FINDINGS: RIGHT: The right common carotid artery (CCA) peak systolic velocity (PSV) is 74 cm/s. The right internal car otid artery (ICA) PSV is 134 cm/s. The right ICA end-diastolic velocity (EDV) is 31 cm/s. The right I CA/CCA PSV ratio is 1.8. Grayscale and color Doppler images yield an estimate of 50-69% diameter redu ction from plaque in the ICA. The external carotid artery (ECA) PSV is 63 cm/s. There is antegrade fl ow in the right vertebral artery. LEFT: The left CCA PSV is 83 cm/s. The left ICA PSV is 89 cm/s. The left ICA EDV is 26 cm/s. The left ICA/C CA PSV ratio is 0.9. Grayscale and color Doppler images yield an estimate of <50% diameter reduction from plaque in the ICA. The ECA PSV is 60 cm/s. There is antegrade flow in the left vertebral artery. IMPRESSION: 1. 50-69% stenosis in the right internal carotid artery. 2. <50% stenosis in the left internal carotid artery. Reviewed, dictated and finalized at location A. 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
== END 2024-04-02 13:48 | disposition home or self-care (01) ==
LOC: ANHIMG 13:50
PROVIDERS: PCP Family Medicine; Visit Provider Psychiatry & Neurology Neurology
DX: I65.29 Occlusion and stenosis of unspecified carotid artery (principal); I67.9 Cerebrovascular disease, unspecified; G25.0 Essential tremor
CPT/HCPCS: 93880

== ENCOUNTER 2024-06-27 14:34 | Outpatient (CLI) | payer OTHER, SELFPAY ==
--- NOTE | ~2024-06-27 | MM_ITS ---
EXAMINATION: MM screening [facility] HISTORY: Screening mammogram TECHNIQUE: Craniocaudal and mediolateral oblique 3-D tomosynthesis images were obtained and synthetic 2-D images were generated. CAD analysis was submitted and interpreted. COMPARISON: 05/06/2022, 01/15/2021, 01/14/2020 BREAST PARENCHYMAL COMPOSITION:Not Dense. There are scattered areas of fibroglandular density. FINDINGS: No suspicious mass, calcification, or architectural distortion are identified in either jose ast to suggest malignancy. There has been no suspicious interval change. IMPRESSION: No mammographic evidence of malignancy. Recommend routine screening mammography in one year. BI-RADS Category 1: Negative Reviewed, dictated and finalized at location . NESS SERVICES SALES REPRESENTATIVE
--- OUTSIDE RECORDS SUMMARY | 2024-06-27 16:19 | XMS_ITS | Referral Summary ---
Author Organization [facility] [address] Address [address] [place] [address] Care Team Providers Care Accountant Machine Processing Name Role Phone Brenda Diehl MD Primary Care Provider Jay Jay Avery MD Unavailable [phone] Allergies No known active allergies Medications albuterol HFA (PROVENTIL HFA,VENTOLIN HFA,PROAIR HFA) 90 mcg/actuation inhaler 05/21/2019 Active alendronate (FOSAMAX) 70 mg tablet 70 mg Active aspirin 81 mg enteric coated tablet 1 tablet (81 mg total) daily Active cetirizine (ZyrTEC) 10 mg tablet 10 mg daily Active chlorthalidone 25 mg tablet 04/16/2019 Active losartan (COZAAR) 100 mg tablet 05/22/2019 Active metoprolol XL (TOPROL-XL) 50 mg 24 hr tablet 04/23/[address] (PROTONIX) 20 mg EC tablet 03/19/2019 Active pravastatin (PRAVACHOL) 20 mg tablet 04/16/2019 Active sertraline (ZOLOFT) 25 mg tablet Take 1 tablet (25 mg total) by mouth daily 06/27/2023 Active calcium carbonate-vitami n D3 1,500 mg (600 mg elemental)-1,000 unit capsule Take by mouth Active Active Problems Problem Noted Date Diagnosed Date Bilateral carotid artery stenosis 05/20/2016 Assessment & Plan (07/23/2023 5:15 PM CDT): Stable asymptomatic moderate stenosis. Follow-up 1 year for carotid duplex. Continue anti-platelet therapy. Assessment & Plan (06/30/2022 12:00 PM GIFT BASKET PACKER): Impression: Patient has bilateral carotid stenosis and remains asymptomatic. Moderate right internal carotid and mild left internal carotid stenosis seen on carotid duplex. Plan: Continue ongoing risk factor modifications. Patient to follow-up in 1 year for re-evaluation with carotid duplex. Assessment & Plan (06/26/2021 10:32 AM GIFT BASKET PACKER): Impression: Patient has bilateral carotid stenosis and remains asymptomatic. Patient has moderate right carotid stenosis with a diameter less than 79% and mild carotid left stenosis with less than 49% in diameter. Plan: Continue ongoing risk factor modifications. Patient to follow-up in 1 year for re-evaluation with carotid duplex. Hypertension Assessment & Plan (07/23/2023 5:15 PM CDT): Hypertension chronic controlled. Continue current medical management. Assessment & Plan (06/30/2022 11:58 AM GIFT BASKET PACKER): Impression: Chronic hypertension Plan: Continue losartan 100mg and metoprolol 50mg, Assessment & Plan (06/26/2021 10:33 AM GIFT BASKET PACKER): Impression: Chronic stable hypertension, controlled medications. Blood pressure stable this office visit. Plan: Medications reviewed, no changes made. Continue blood pressure management as per primary care provider. Hypercholesterolemia Assessment & Plan (07/23/2023 5:16 PM CDT): Hypercholesterolemia chronic controlled. Continue statin therapy. Assessment & Plan (06/30/2022 11:59 AM GIFT BASKET PACKER): Impression: Chronic hypercholesterolemia Plan: Continue pravastatin 20mg Assessment & Plan (06/26/2021 10:33 AM GIFT BASKET PACKER): Impression: Chronic stable hypercholesterolemia, controlled with statin therapy. Plan: Medications reviewed, no changes made. Continue statin therapy as per primary care provider. Immunizations Immunization Administration Dates Next Due Influenza, Quad, Adjuvantated, Intramuscular 12/2019 Social History Tobacco Use Types Packs/Day Years Used Date Smoking Tobacco: Never Tobacco Cessation:Counseling Given: Not Answered Comments Unknown Sex and Gender Information Value Date Recorded Sex Assigned at Not on file Legal Sex Female 9:05 PM GIFT BASKET PACKER Gender Identity Not on file Sexual Orientation Not on file Last Filed Vital Signs Vital Sign Reading Time Taken Comments Blood Pressure 137/73 07/06/2023 9:44 AM CDT Pulse 63 07/06/2023 9:44 AM CDT Temperature 36.4 C (97.5 F) 06/12/2019 1:24 PM GIFT BASKET PACKER Respiratory Rate - - Oxygen Saturation - - Inhaled Oxygen Concentration - - Weight 87.1 kg (192 lb) 07/06/2023 9:44 AM CDT Height 165.1 cm (5' 5 ) 07/06/2023 9:44 AM CDT Body Mass Index 31.95 07/06/2023 9:44 AM CDT Plan of Treatment Not on file Insurance [employer] [facility] Care Teams Accountant Machine Processing Relationship Specialty Start Date End Date Brenda Diehl MD [address] [facility] [address] [facility] [address] [place] [address] PCP - General Family Medicine 09/28/18 Jay Jay Avery MD [address] [facility] [address] [place] [address] Surgeon Vascular Surgery 06/21/22
--- OUTSIDE RECORDS SUMMARY | 2024-06-27 16:19 | XMS_ITS | Encounter Summary ---
Author Organization [facility] Care Team Providers Care Curber Name Role Phone Brenda Diehl MD Primary Care Provider Jay Jay Avery MD Unavailable [phone] Encounter Details Date Type Department Care Team (Latest Contact Info) Description 08/20/2015 Orders Only [facility] ProviderCris MD [address] [place] [id number] Social History Tobacco Use Types Packs/Day Years Used Date Smoking Tobacco: Never Assessed Comments Unknown Sex and Gender Information Value Date Recorded Sex Assigned at Not on file Legal Sex Female 9:05 PM BUILDING SERVICE WORKER Gender Identity Not on file Sexual Orientation Not on file documented as of this encounter Plan of Treatment Not on file documented as of this encounter Procedures Procedure Name Priority Date/Time Associated Diagnosis Comments SCAN - LABS 05/20/2016 12:00 AM BUILDING SERVICE WORKER documented in this encounter Results * SCAN - LABS (05/20/2016 12:00 AM BUILDING SERVICE WORKER) Narrative 05/20/2016 12:00 AM BUILDING SERVICE WORKER Ordered by an unspecified provider. Historical Provider Final Res ult documented in this encounter Visit Diagnoses Not on filedocumented in this encounter Care Teams Curber Relationship Specialty Start Date End Date Brenda Diehl MD [address] [place] [address] PCP - General Family Medicine 09/28/18 Jay Jay Avery MD [address] [facility] [address] [place] [address] [address] Surgeon Vascular Surgery 06/21/22 documented as of this encounter
--- OUTSIDE RECORDS SUMMARY | 2024-06-27 16:19 | XMS_ITS | Encounter Summary ---
Author Organization [facility] Address [address] [facility] Attn: Epic Prelude ADT [place] [address] Care Team Providers Care Compressor Engineer Name Role Phone Unavailable Primary Care Provider Unavailabl e Encounter Details Date Type Department Care Team (Late st Contact Info) Description 05/04/1990 Outpatient Historical SaffaFredo MD NO ADDRESS ON FILE Social History Tobacco Use Types Packs/Day Years Used Date Smoking Tobacco: Never Assessed Comments Unknown Sex and Gender Information Value Date Recorded Sex Assigned at Not on file Legal Sex Female 4:46 AM UTILIZATION MANAGER Gender Identity Not on file Sexual Orientation Not on file documented as of this encounter Plan of Treatment Not on file documented as of this encounter Visit Diagnoses Not on filedocumented in this encounter
--- OUTSIDE RECORDS SUMMARY | 2024-06-27 16:20 | XMS_ITS | Clinical Summary ---
Author Organization [facility] [address] Address [address] [place] [address] Care Team Providers Care Tattoo Artist Name Role Phone Brenda Diehl MD Primary Care Provider Jay Jay Avery MD Unavailable [phone] Allergies No known active allergies Medications albuterol [...] therapy. Assessment & Plan (06/30/2022 12:00 PM AUTOMATED ACCESS SYSTEMS TECHNICIAN): Impression: Patient has bilateral carotid stenosis and remains asymptomatic. Moderate right internal carotid and mild left internal carotid stenosis seen on carotid duplex. Plan: Continue ongoing risk factor modifications. Patient to follow-up in 1 year for re-evaluation with carotid duplex. Assessment & Plan (06/26/2021 10:32 AM AUTOMATED ACCESS SYSTEMS TECHNICIAN): Impression: Patient has bilateral carotid stenosis and [...] management. Assessment & Plan (06/30/2022 11:58 AM AUTOMATED ACCESS SYSTEMS TECHNICIAN): Impression: Chronic hypertension Plan: Continue losartan 100mg and metoprolol 50mg, Assessment & Plan (06/26/2021 10:33 AM AUTOMATED ACCESS SYSTEMS TECHNICIAN): Impression: Chronic stable hypertension, controlled medications. Blood pressure stable this office visit. Plan: Medications reviewed, no changes made. Continue blood pressure management as per primary care provider. Hypercholesterolemia Assessment & Plan (07/23/2023 5:16 PM CDT): Hypercholesterolemia chronic controlled. Continue statin therapy. Assessment & Plan (06/30/2022 11:59 AM AUTOMATED ACCESS SYSTEMS TECHNICIAN): Impression: Chronic hypercholesterolemia Plan: Continue pravastatin 20mg Assessment & Plan (06/26/2021 10:33 AM AUTOMATED ACCESS SYSTEMS TECHNICIAN): Impression: Chronic stable hypercholesterolemia, controlled with statin therapy. Plan: Medications reviewed, no changes made. Continue statin therapy as per primary care provider. Immunizations Immunization Administration Dates Next Due Influenza, Quad, Adjuvantated, Intramuscular 12/2019 Medical History Medical History Date Comments Hypercholesterolemia Hypertension Family History Medical History Relation Name Comments Cancer Father Diabetes Father Heart disease Father Hypertension Father Heart defect Mother Relation Name Status Comments Father Mother Social History Tobacco Use Types Packs/Day Years Used Date Smoking Tobacco: Never Tobacco Cessation:Counseling Given: Not Answered Comments Unknown Sex and Gender Information Value Date Recorded Sex Assigned at Not on file Legal Sex Female 9:05 PM AUTOMATED ACCESS SYSTEMS TECHNICIAN Gender Identity Not on file Sexual Orientation Not on file Obstetrics History Last Filed Vital Signs Vital Sign Reading Time Taken Comments Blood Pressure 137/73 07/06/2023 9:44 AM CDT Pulse 63 07/06/2023 9:44 AM CDT Temperature 36.4 C (97.5 F) 06/12/2019 1:24 PM AUTOMATED ACCESS SYSTEMS TECHNICIAN Respiratory Rate - - Oxygen Saturation - - Inhaled Oxygen Concentration - - Weight 87.1 kg (192 lb) 07/06/2023 9:44 AM CDT Height 165.1 cm (5' 5 ) 07/06/2023 9:44 AM CDT Body Mass Index 31.95 07/06/2023 9:44 AM CDT Plan of Treatment Health Maintenance Due Date Last Done Comments Depression Screening 1945 Fall Risk Assessment 1945 Hepatitis C Screening 1945 Osteoporosis Screening-Bone Density Scan 1945 DTaP/Tdap/Td Vaccine (1 - Tdap) 1957 Hepatitis B Screening 1964 Pneumococcal vaccine 65+ (1 of 1 - PCV) 1996 Zoster Vaccine (1 of 2) 1996 Well Visit 65+ 2011 Influenza Vaccine (#1) 2023 01/02/2020 Insurance [facility] Member Subscriber Plan / Payer (Ef fective 2012-Present) Name:Kirsty Vivar Relation to Subscriber:Self Name:Kirsty Vivar Payer ID:[id number] (NAIC) Type:MEDICARE RISK OTHER Address: [address] [facility] Care Teams Tattoo Artist Relationship Specialty Start Date End Date Brenda Diehl MD [address] [facility] [address] [facility] [address] [place] [address] PCP - General Family Medicine 09/28/18 Jay Jay Avery MD [id number] [place] [address] Surgeon Vascular Surgery 06/21/22
--- OUTSIDE RECORDS SUMMARY | 2024-06-27 16:20 | XMS_ITS | Clinical Summary ---
Author Organization [facility] Address [address] [facility] Attn: Epic Prelude ADT [place] [address] Care Team Providers Care Commercial Lender Name Role Phone Unavailable Primary Care Provider Unavailabl e Social History Tobacco Use Types Packs/Day Years Used Date Smoking Tobacco: Never Assessed Comments Unknown Sex and Gender Information Value Date Recorded Sex Assigned at Not on file Legal Sex Female 4:46 AM SENIOR SUPPORT ANALYST Gender Identity Not on file Sexual Orientation Not on file Plan of Treatment Health Maintenance Due Date Last Done Comments DTAP/TDAP/TD VACCINES (1 - Tdap) 1965 PNEUMOCOCCAL VACCINE 50+ YEARS (1 of 1 - PCV) 03/31/19 96 ZOSTER VACCINE (1 of 2) 1996 OSTEOPOROSIS SCREENING 2011 RSV VACCINE (60+ or ) (1 - 1-dose 75+ series) 2021 INFLUENZA VACCINE (#1) 2023
== END 2024-06-27 14:35 | disposition home or self-care (01) ==
LOC: ANHIMG 14:36
PROVIDERS: PCP Family Medicine; Visit Provider Family Medicine
DX: Z12.31 Encounter for screening mammogram for malignant neoplasm of breast (principal)
CPT/HCPCS: 77063; 77067

== ENCOUNTER 2024-07-14 11:44 | Outpatient (CLI) | payer OTHER, SELFPAY ==
--- NOTE | ~2024-07-14 | DEXA_ITS ---
Bone Density Report Name: MARTIR TORREZ Age: 79 Sex: Female Ethnicity: White Date of : 1945 Indication: osteopenia; height loss; hysterectomy; Referring Provider: ANGELA ARGUETA Study: Bone densitometry was performed. Exam Date: July 14, 2024 Accession number: [id number] Bone Density: Region BMD T-score Z-score Classification AP Spine(L1-L4) 1.000 -0.4 2.2 Normal Femoral Neck (Left) 0.641 -1.9 0.3 Osteopenia Total Hip (Left) 0.868 -0.6 1.4 Normal Femoral Neck (Right) 0.641 -1.9 0.4 Osteopenia Total Hip (Right) 0.826 -0.9 1.0 Normal Total Hip Mean 0.847 -0.8 1.2 Normal World Health Organization criteria for BMD impression classify patients as: Normal (T-score at or above -1.0), Osteopenia (T-score between -1.0 and -2.5), or Osteoporosis (T-score at or below -2.5). 10-year Fracture Risk(1): Major Osteoporotic Fracture 14% Hip Fracture 3.5% Reported Risk Factors: [place] (), Neck BMD=0.641, BMI=29.7 (1) FRAX(R) Version 3.08. Fracture probability calculated for an untreated patient. Fracture probability may be lower if the patient has received treatment. Previous Exams: Region Exam Age BMD T-score BMD Change BMD Change Date g/cm2 vs Baseline vs Previous Total Hip(Left) 07/14/2024 79 0.868 -0.6 0.008 (0.9%)# 0.008 (0.9%)# 01/15/2021 75 0.860 -0.7 Total Hip(Right) 07/14/2024 79 0.826 -0.9 0.014 (1.7%)# 0.014 (1.7%)# 01/15/2021 75 0.813 -1.1 *Denotes significance at 95% confidence level, LSC for Total Hip = 0.027 g/cm2 # Denotes dissimilar scan types or analysis methods Clinical Information Provided by Patient: Has used the following medications: Fosamax (i.e. alendronate), Vitamin D Has the following medical conditions: Hysterectomy Patient maximum height was 64 Menopause Age: 33 No regular weight bearing exercise Drinks caffeinated beverages Onset of menses at age 14 Number of children 2 Missed period for more than 6 months in a row Impression: The patient has low bone mass, based on the Left Femoral Neck T-score. The patient has an estimated ten-year risk of hip fracture of 3.5% and an estimated ten-year risk of major fracture of 14%, based on the WHO FRAX algorithm. No significant bone loss was observed. Discussion: BONE DENSITY IS LOW AT ONE OR MORE SKELETAL SITES. THE PATIENT'S BMD AND CLINICAL RISK FACTORS CONTRIBUTE TO THIS PATIENT'S INCREASED RISK OF FRACTURE. This patient's lowest T-score is low at one or more skeletal sites. It meets the World Health Organization's (WHO) criteria for ?low bone mass? (T-score between -1.0 and -2.5). The patient's 10-year risk of hip fracture as calculated by FRAX exceeds the threshold where pharmacological therapy is recommended by the National Osteoporosis Foundation (NOF). However, all treatment decisions require clinical judgment and consideration of individual patient factors, including patient preferences, comorbidities, previous drug use, risk factors not captured in the FRAX model (e.g., frailty, falls, vitamin D deficiency, increased bone turnover, interval significant decline in bone density) and possible under or overestimation of fracture risk by FRAX. The patient should follow a healthful lifestyle (good nutrition with adequate calcium and vitamin D, and appropriate weight-bearing exercise). Follow-Up: Consider a repeat BMD and Vertebral Fracture Assessment (VFA) exam in 2 years or sooner if medically necessary, to reassess this patient's status. Reported by: ROMY on 07/14/2024 12:16:00 PM. Reviewed, dictated and finalized at location A. [facility]
--- OUTSIDE RECORDS SUMMARY | 2024-07-14 11:46 | XMS_ITS | Clinical Summary ---
Author Organization [facility] Address [address] [facility] Attn: Epic Prelude ADT [place] [address] Care Team Providers Care Remote Sensing Analyst Name Role Phone Unavailable Primary Care Provider Unavailabl e Social History Tobacco Use Types Packs/Day Years Used Date Smoking Tobacco: Never Assessed Comments Unknown Sex and Gender Information Value Date Recorded Sex Assigned at Not on file Legal Sex Female 4:46 AM WOUND NURSE Gender Identity Not on file Sexual Orientation [...]
--- OUTSIDE RECORDS SUMMARY | 2024-07-14 11:46 | XMS_ITS | Referral Summary ---
Author Organization [facility] [address] Address [address] [place] [address] Care Team Providers Care First Aid Attendant Name Role Phone Judy Avery MD Unavailable [phone] Lazaro Peace MD Primary Care Provider Encounters Date Type Department Care Team Description 07/12/2024 Orders Only [facility] Medical [facility] Vascular and Vein Surgery [address] [place] [address] [address] [place] [phone] Judy Avery MD Bilateral carotid artery stenosis (Primary Dx) 07/12/2024 9:00 AM CDT Office Visit [facility] Vascular and Vein Surgery [address] [place] [address] [address] [place] [phone] Tamar Aviles NP Secondary hypertension (Primary Dx); Hypercholesterolemia ; Bilateral carotid artery stenosis 07/09/2024 2:02 PM CDT - 07/09/2024 11:59 PM CDT Hospital Encounter [facility] Medical Office Building [address] [place] [address] [address] [place] [address] Bilateral carotid artery stenosis Discharge Disposition: Discharge to home or self care from Last 3 Months Allergies No known active allergies Medications albuterol [...] 20 mg tablet 04/16/2019 Active sertraline (ZOLOFT) 50 mg tablet Take 0.5 tablets (25 mg total) by mouth daily 06/27/2023 Active calcium carbonate-vitam in D3 1,500 mg (600 mg elemental)-1,00 0 unit capsule Take by mouth Active primidone (MYSOLINE) 50 mg tablet 07/07/2024 Active eszopiclone (LUNESTA) 1 mg tablet Take 1 tablet (1 mg total) by mouth nightly at bedtime 06/22/2024 Active Active Problems Problem Noted Date Diagnosed Date Bilateral carotid artery stenosis 05/20/2016 Assessment & Plan (07/12/2024 9:31 AM CDT): Patient remains asymptomatic. Moderate right internal carotid artery stenosis. Continue aspirin statin therapy and follow-up in 1 year for routine surveillance with carotid duplex. Assessment & Plan (07/23/2023 5:15 PM CDT): Stable asymptomatic moderate stenosis. Follow-up 1 year for carotid duplex. Continue anti-platelet therapy. Assessment & Plan (06/30/2022 12:00 PM [facility]): Impression: Patient has bilateral carotid stenosis and remains asymptomatic. Moderate right internal carotid and mild left internal carotid stenosis seen on carotid duplex. Plan: Continue ongoing risk factor modifications. Patient to follow-up in 1 year for re-evaluation with carotid duplex. Assessment & Plan (06/26/2021 10:32 AM [facility]): Impression: Patient has bilateral carotid stenosis and [...] management. Assessment & Plan (06/30/2022 11:58 AM [facility]): Impression: Chronic hypertension Plan: Continue losartan 100mg and metoprolol 50mg, Assessment & Plan (06/26/2021 10:33 AM [facility]): Impression: Chronic stable hypertension, controlled medications. Blood pressure stable this office visit. Plan: Medications reviewed, no changes made. Continue blood pressure management as per primary care provider. Hypercholesterolemia Assessment & Plan (07/23/2023 5:16 PM CDT): Hypercholesterolemia chronic controlled. Continue statin therapy. Assessment & Plan (06/30/2022 11:59 AM [facility]): Impression: Chronic hypercholesterolemia Plan: Continue pravastatin 20mg Assessment & Plan (06/26/2021 10:33 AM [facility]): Impression: Chronic stable hypercholesterolemia, controlled with statin [...] on file Legal Sex Female 9:05 PM [facility] Gender Identity Not on file Sexual Orientation Not on file Last Filed Vital Signs Vital Sign Reading Time Taken Comments Blood Pressure 153/87 07/12/2024 9:01 AM CDT Pulse 70 07/12/2024 9:01 AM CDT Temperature 36.4 C (97.5 F) 06/12/2019 1:24 PM [facility] Respiratory Rate - - Oxygen Saturation - - Inhaled Oxygen Concentration - - Weight 87.1 kg (192 lb) 07/12/2024 9:01 AM CDT Height 165.1 cm (5' 5 ) 07/12/2024 9:01 AM CDT Body Mass Index 31.95 07/12/2024 9:01 AM CDT Plan of Treatment Not on file Procedures Procedure Name Priority Date/Time Associated Diagnosis Comments US CAROTIDS DUPLEX BILATERAL Schedule Routine, Read Routine (OP Routine) 07/09/2024 2:50 PM CDT Bilateral carotid artery stenosis from Last 3 Months Results * US Carotids Duplex Bilateral (07/09/2024 2:50 PM CDT) Anatomical Region Laterality Modality Vascular Bilateral Ultrasound 07/09/2024 2:24 PM CDT Narrative 07/10/2024 8:35 AM CDT Carotid Duplex Ultrasound Report Patient Name: MARTIR VIVAR LO : 1945 (79y 3m) Study Date: 07/09/2024 2:24:08 PM Gender: F Lone Lead Lineman: Ykaelin Riojas Provider: JUDY AVERY Quality: Adequate Order Provider: JUDY AVERY PROCEDURES: Carotid Report: Carotid duplex examination of the extracranial arteries was performed using 2D, color and spectral Doppler. Blood Pressure: Right: 134 mmHg. Left: 130 mmHg. INDICATIONS: I65.23 Occlusion and stenosis of bilateral carotid arteries. HISTORY: F/U Carotid stenosis. HTN/HLD. COMPARISONS: The previous exam was completed on 07/06/2023. Compared to prior RT ICA 50-69% LT <50%. MEASUREMENTS: Right Value Left Value RT Prox CCA PSV 73 cm/sec LT Prox CCA PSV 84 cm/sec RT Prox CCA EDV 15 cm/sec LT Prox CCA EDV 23 cm/sec RT Distal CCA PSV 66 cm/sec LT Distal CCA PSV 69 cm/sec RT Distal CCA EDV 19 cm/sec LT Distal CCA EDV 22 cm/sec RT Prox ICA PSV 127 cm/sec LT Prox ICA PSV 74 cm/sec RT Prox ICA EDV 47 cm/sec LT Prox ICA EDV 21 cm/sec RT Mid ICA PSV 59 cm/sec LT Mid ICA PSV 78 cm/sec RT Mid ICA EDV 17 cm/sec LT Mid ICA EDV 20 cm/sec RT Distal ICA PSV 59 cm/sec LT Distal ICA PSV 86 cm/sec RT Distal ICA EDV 19 cm/sec LT Distal ICA EDV 32 cm/sec RT ECA Prx PSV 78 cm/sec LT ECA Prx PSV 53 cm/sec RT ECA Prx EDV 15 cm/sec LT ECA Prx EDV 8 cm/sec RT ICA/CCA 1.90 ratio Lt Vert PSV 51 cm/sec Rt Vert PSV 29 cm/sec FINDINGS: Rt Common Carotid Artery: Duplex imaging of the right common carotid artery is within normal limits without evidence of atherosclerotic disease. Atherosclerotic changes of the right common carotid artery with no hemodynamically significant Doppler findings. Rt Internal Carotid Artery: The plaque in the right internal carotid artery appears to be heterogeneous and smooth. Rt External Carotid Artery: The right external carotid artery is patent without evidence of atherosclerotic plaque. Rt Vertebral Artery: The right vertebral artery is patent with antegrade flow. Lt Common Carotid Artery: Duplex imaging of the left common carotid artery is within normal limits without evidence of atherosclerotic disease. Lt Internal Carotid Artery: There is intimal thickening but no significant atherosclerotic plaque noted in the left internal carotid artery. Lt External Carotid Artery: The left external carotid artery is patent without evidence of atherosclerotic plaque. Lt Vertebral Artery: The left vertebral artery is patent with antegrade flow. CONCLUSIONS: 1. No evidence of hemodynamically significant disease of the bilateral extracranial carotid system. 2. Normal, antegrade flow is noted in bilateral vertebral arteries. ATTESTATION: I have reviewed and interpreted the pertinent images and measurements of this study. I attest to the conclusions in the final report that is provided above. Electronically Signed By: Judy Avery MD 07/10/2024 7:38:11 AM CDT Procedure Note Judy Avery MD - 07/10/2024 Carotid Duplex Ultrasound Report Patient Name: MARTIR VIVAR LO : 1945 (79y 3m) Study Date: 07/09/2024 2:24:08 PM Gender: F Lone Lead Lineman: Yakelin Riojas Provider: JUDY AVERY Quality: Adequate Order Provider: JUDY AVERY PROCEDURES: Carotid Report: Carotid duplex examination of the extracranial arterieswas performed using 2D, color and spectral Doppler. Blood Pressure: Right: 134 mmHg. Left: 130 mmHg. INDICATIONS: I65.23 Occlusion and stenosis of bilateral carotid arteries. HISTORY: F/U Carotid stenosis. HTN/HLD. COMPARISONS: The previous exam was completed on 07/06/2023. Compared to prior RT SAI40-85% LT <50%. MEASUREMENTS: Right Value Left Value RT Prox CCA PSV 73 cm/sec LT Prox CCA PSV 84 cm/sec RT Prox CCA EDV 15 cm/sec LT Prox CCA EDV 23 cm/sec RT Distal CCA PSV 66 cm/sec LT Distal CCA PSV 69 cm/sec RT Distal CCA EDV 19 cm/sec LT Distal CCA EDV 22 cm/sec RT Prox ICA PSV 127 cm/sec LT Prox ICA PSV 74 cm/sec RT Prox ICA EDV 47 cm/sec LT Prox ICA EDV 21 cm/sec RT Mid ICA PSV 59 cm/sec LT Mid ICA PSV 78 cm/sec RT Mid ICA EDV 17 cm/sec LT Mid ICA EDV 20 cm/sec RT Distal ICA PSV 59 cm/sec LT Distal ICA PSV 86 cm/sec RT Distal ICA EDV 19 cm/sec LT Distal ICA EDV 32 cm/sec RT ECA Prx PSV 78 cm/sec LT ECA Prx PSV 53 cm/sec RT ECA Prx EDV 15 cm/sec LT ECA Prx EDV 8 cm/sec RT ICA/CCA 1.90 ratio Lt Vert PSV 51 cm/sec Rt Vert PSV 29 cm/sec FINDINGS: Rt Common Carotid Artery: Duplex imaging of the right common carotidartery is within normal limits without evidence of atherosclerotic disease. Atheroscleroticchanges of the right common carotid artery with no hemodynamically significant Dopplerfindings. Rt Internal Carotid Artery: The plaque in the right internal carotidartery appears to be heterogeneous and smooth. Rt External Carotid Artery: The right external carotid artery is patentwithout evidence of atherosclerotic plaque. Rt Vertebral Artery: The right vertebral artery is patent with antegradeflow. Lt Common Carotid Artery: Duplex imaging of the left common carotid arteryis within normal limits without evidence of atherosclerotic disease. Lt Internal Carotid Artery: There is intimal thickening but no significant atherosclerotic plaque noted in the left internal carotid artery. Lt External Carotid Artery: The left external carotid artery is patentwithout evidence of atherosclerotic plaque. Lt Vertebral Artery: The left vertebral artery is patent with antegradeflow. CONCLUSIONS: 1. No evidence of hemodynamically significant disease of the bilateralextracranial carotid system. 2. Normal, antegrade flow is noted in bilateral vertebral arteries. ATTESTATION: I have reviewed and interpreted the pertinent images and measurements ofthis study. I attest to the conclusions in the final report that is provided above. Electronically Signed By: Judy Avery MD 07/10/2024 7:38:11 AM CDT Judy Avery MD IMG US PROCEDURES Final Re sult from Last 3 Months Insurance [facility] Member Subscriber Plan / Payer (Ef fective 2012-Present) Name:Martir Vivar Relation to Subscriber:Self Name:Martir Vivar Payer ID:[id number] (NAIC) Type:MEDICARE RISK OTHER Address: [place] [id number] Member Subscriber Plan / Payer (Ef fective 2012-Present) Name:Martir Vivar Relation to Subscriber:Self Name:Martir Vivar Payer ID:[id number] (NAIC) Type:MEDICARE RISK OTHER Address: [place] [phone] Care Teams First Aid Attendant Relationship Specialty Start Date End Date Lazaro Peace MD [address] [facility] [address] [facility] [address] [place] [address] PCP - General Family Medicine 07/12/24 Judy Avery MD [address] [facility] [address] [place] [address] Surgeon Vascular Surgery 06/21/22
--- OUTSIDE RECORDS SUMMARY | 2024-07-14 11:46 | XMS_ITS | Encounter Summary ---
Author Organization [facility] Address [address] 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
--- OUTSIDE RECORDS SUMMARY | 2024-07-14 11:46 | XMS_ITS | Clinical Summary ---
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 Gender Identity Not on file Sexual Orientation Not on file Plan of Treatment Upcoming Encounters Date Type Department Care Team (Late st Contact Info) Description 09/12/2024 8:20 AM CDT Office Visit [facility] Multispecialty Care - [facility] [address] [facility], [address] [place] [address] Mary Sosa MD [address] [place] [address] 11/27/2024 9:00 AM CDT Office Visit [facility] Family Medicine - [address], [address] [place] [address] Maya Menezes MD [facility] [facility] [address] [place], [place] [address] Health Maintenance Due Date Last Done Comments Hepatitis C 1964 DTaP, Tdap and Td Vaccines ( 1 - Tdap) 1965 Zoster Vaccines (1 of 2) 1996 Annual Medicare Wellness Visit 2011 Dexa Scan (General) 2011 Pneumococcal Vaccine: 65+ Ye ars (1 of 1 - PCV) 2011 RSV Immunization or 60+ Years (1 - 1-dose 75+ series) 2021 COVID-19 Vaccine ( - 2023-2 5 season) 2023 Influenza Adult (#1) 2024 Meningococcal B Vaccine Aged Out No l onger eligible based on patient's age to complete this topic Meningococcal Vaccine Aged Out No chantell grecia eligible based on patient's age to complete this topic RSV Immunizations Under 20 Months Aged Out No longer eligible based on patient's age to complete this topic Insurance [employer]
--- OUTSIDE RECORDS SUMMARY | 2024-07-14 11:46 | XMS_ITS | Clinical Summary ---
Author Organization [facility] [address] Address [address] [place] [address] Care Team Providers Care Superintendent Division Name Role Phone Judy Avery MD Unavailable [phone] Lazaro Peace MD Primary Care Provider Allergies No known active allergies Medications albuterol [...] therapy. Assessment & Plan (06/30/2022 12:00 PM I&C TECH): Impression: Patient has bilateral carotid stenosis and remains asymptomatic. Moderate right internal carotid and mild left internal carotid stenosis seen on carotid duplex. Plan: Continue ongoing risk factor modifications. Patient to follow-up in 1 year for re-evaluation with carotid duplex. Assessment & Plan (06/26/2021 10:32 AM I&C TECH): Impression: Patient has bilateral carotid stenosis and [...] management. Assessment & Plan (06/30/2022 11:58 AM I&C TECH): Impression: Chronic hypertension Plan: Continue losartan 100mg and metoprolol 50mg, Assessment & Plan (06/26/2021 10:33 AM I&C TECH): Impression: Chronic stable hypertension, controlled medications. Blood pressure stable this office visit. Plan: Medications reviewed, no changes made. Continue blood pressure management as per primary care provider. Hypercholesterolemia Assessment & Plan (07/23/2023 5:16 PM CDT): Hypercholesterolemia chronic controlled. Continue statin therapy. Assessment & Plan (06/30/2022 11:59 AM I&C TECH): Impression: Chronic hypercholesterolemia Plan: Continue pravastatin 20mg Assessment & Plan (06/26/2021 10:33 AM I&C TECH): Impression: Chronic stable hypercholesterolemia, controlled with statin therapy. Plan: Medications reviewed, no changes made. Continue statin therapy as per primary care provider. Encounters Date Type Department Care Team Description 07/12/2024 9:00 AM CDT Office Visit [facility] Vascular and Vein Surgery [facility] [facility] [address] [place] [address] Tamar Aviles NP Secondary hypertension (Primary Dx); Hypercholesterolemia ; Bilateral carotid artery stenosis 07/12/2024 Orders Only [facility] Vascular and Vein Surgery [facility] [facility] [address] [place] [address] Judy Avery MD Bilateral carotid artery stenosis (Primary Dx) 07/09/2024 2:02 PM CDT - 07/09/2024 11:59 PM CDT Hospital Encounter [facility] Medical Office Building [address] [place] [address] [address] [place] [address] Bilateral carotid artery stenosis Discharge Disposition: Discharge to home or self care from Last 3 Months Immunizations Immunization Administration Dates Next Due Influenza, [...] on file Legal Sex Female 9:05 PM I&C TECH Gender Identity Not on file Sexual Orientation Not on file Obstetrics History Last Filed Vital Signs Vital Sign Reading Time Taken Comments Blood Pressure 153/87 07/12/2024 9:01 AM CDT Pulse 70 07/12/2024 9:01 AM CDT Temperature 36.4 C (97.5 F) 06/12/2019 1:24 PM I&C TECH Respiratory Rate - - Oxygen Saturation - - Inhaled Oxygen Concentration - - Weight 87.1 kg (192 lb) 07/12/2024 9:01 AM CDT Height 165.1 cm (5' 5 ) 07/12/2024 9:01 AM CDT Body Mass Index 31.95 07/12/2024 9:01 AM CDT Plan of Treatment Health Maintenance Due Date Last Done Comments Depression Screening 1945 Fall Risk Assessment 1945 Hepatitis C Screening 1945 Osteoporosis Screening-Bone Density Scan 1945 DTaP/Tdap/Td Vaccine (1 - Tdap) 1957 Hepatitis B Screening 1964 Pneumococcal vaccine 65+ (1 of 1 - PCV) 1996 Zoster Vaccine (1 of 2) 1996 Well Visit 65+ 2011 Influenza Vaccine (#1) 2023 01/02/2020 Procedures Procedure Name Priority Date/Time Associated Diagnosis Comments US CAROTIDS DUPLEX BILATERAL Schedule Routine, Read Routine (OP Routine) 07/09/2024 2:50 PM CDT Bilateral carotid artery stenosis from Last 3 Months Results * US Carotids Duplex Bilateral (07/09/2024 2:50 PM CDT) Anatomical Region Laterality Modality Vascular Bilateral Ultrasound 07/09/2024 2:24 PM CDT Narrative 07/10/2024 8:35 AM CDT Carotid Duplex Ultrasound Report Patient Name: AMRTIR VIVAR LO : 1945 (79y 3m) Study Date: 07/09/2024 2:24:08 PM Gender: F News Production Supervisor: Yakelin Riojas Provider: JUDY AVERY Quality: Adequate [...] Study Date: 07/09/2024 2:24:08 PM Gender: F News Production Supervisor: Yakelin Riojas Provider: JDUY AVERY Quality: Adequate Order Provider: JUDY AVERY PROCEDURES: Carotid Report: Carotid duplex examination of the extracranial arterieswas performed using 2D, color and spectral Doppler. Blood Pressure: Right: 134 mmHg. Left: 130 mmHg. INDICATIONS: I65.23 Occlusion and stenosis of bilateral carotid arteries. HISTORY: F/U Carotid stenosis. HTN/HLD. COMPARISONS: The previous exam was completed on 07/06/2023. Compared to prior RT THE71-16% LT <50%. MEASUREMENTS: Right Value Left Value [...] Judy Avery MD 07/10/2024 7:38:11 AM CDT us Judy Avery MD [facility] PROCEDURES Final Re sult from Last 3 Months Insurance Member Subscriber Plan / Payer (Ef fective 2012-Present) Name:Martir Vivar Relation to Subscriber:Self Name:Martir Vivar Payer ID:[id number] (NAIC) Type:MEDICARE RISK OTHER Address: [place] [phone] [facility] Member Subscriber Plan / Payer (Ef fective 2012-Present) Name:Martir Vivar Relation to Subscriber:Self Name:Martir Vivar Payer ID:[id number] (NAIC) Type:MEDICARE RISK OTHER Address: [place] [phone] Care Teams Superintendent Division Relationship Specialty Start Date End Date Lazaro Peace MD [address] [facility] 162 [facility] 120 [place] [address] PCP - General Family Medicine 07/12/24 Judy Avery MD [address] [facility] [address] [place] [address] Surgeon Vascular Surgery 06/21/22
--- OUTSIDE RECORDS SUMMARY | 2024-07-14 11:46 | XMS_ITS | Encounter Summary ---
Author Organization [facility] Care Team Providers Care Night Guard Name Role Phone Bernda Diehl MD Primary Care Provider Jay Jay Avery MD Unavailable [phone] Lazaro Peace MD Primary Care Provider Encounter Details Date Type Department Care Team (Latest Contact Info) Description 08/20/2015 Orders Only [facility] ProviderCris MD [address] [place] [address] Social History Tobacco Use Types Packs/Day Years Used Date Smoking Tobacco: Never Assessed Comments Unknown Sex and Gender Information Value Date Recorded Sex Assigned at Not on file 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 Historical Provider Final Res ult documented in this encounter Visit Diagnoses Not on filedocumented in this encounter Care Teams Night Guard Relationship Specialty Start Date End Date Brenda Diehl MD [address] [place] [address] PCP - General Family Medicine 09/28/18 07/11/24 Lazaro Peace MD [address] [facility] [address] [place] [address] PCP - General Family Medicine 07/12/24 Jay Jay Avery MD [address] [facility] [address] [place] [address] Surgeon Vascular Surgery 06/21/22 documented as of this encounter
== END 2024-07-14 11:45 | disposition home or self-care (01) ==
LOC: ANHIMG 11:44
PROVIDERS: PCP Family Medicine; Visit Provider Physician Assistant
DX: M85.88 Other specified disorders of bone density and structure, other site (principal); Z78.0 Asymptomatic menopausal state
CPT/HCPCS: 77080